=== PATIENT | male | born 1955 | race African-American/Black ===

== ENCOUNTER 2019-10-25 14:36 | Emergency (ER) | payer MEDICARE ==
[2019-10-25] MEDS ORDERED: Nitroglycerin 50 MG/250 ML BOT 250 ML ONE (14:48)
[2019-10-25] MEDS ORDERED: Enalaprilat Dihydrate 1.25 MG/ML VIAL ONE (14:48)
--- NOTE | 2019-10-25 14:59 | RAD ---
EXAM: Single view of the chest HISTORY: Respiratory distress and shortness of breath COMPARISON: None FINDINGS: Single view of the chest shows a normal sized cardiomediastinal silhouette. There are diffu se mixed interstitial/alveolar opacities in the lungs. Degenerative changes are seen in the spine. IMPRESSION: Diffuse mixed multifocal infiltrates
[2019-10-25] MEDS ORDERED: Furosemide 40 MG/4 ML VIAL ONE (15:03)
[2019-10-25 15:23] LABS: #Basophils 0.2 thou/uL (0.0-0.2); #Lymphocytes 1.1 thou/uL (1.20-3.40); #Monocytes 0.6 thou/uL (0.11-0.59); #Neutrophils 11.6 thou/uL (1.40-6.50); %Basophils 1.4 % (0.0-1.0); %Lymphocytes 8.3 % (21.0-51.0); %Monocytes 4.2 % (0.0-10.0); %Neutrophils 86.1 % (42.0-75.0); Hemoglobin 11.6 g/dL (14.0-18.0); Mean Corpuscular HGB CONC 30.5 g/dL (32.0-36.0); Mean Corpuscular Hemoglobin 22.4 pg (27.0-31.0); Mean Corpuscular Volume 73.5 fL (78.0-98.0); Mean Platelet Volume 10.8 fL (7.4-10.4); Platelet Count 325 thou/uL (130-400); RBC Distribution Width 14.5 % (11.5-14.5); Red Blood Cell (RBC) Count 5.17 mill/uL (4.70-6.10); White Blood Cell (WBC) Count 13.5 thou/uL (4.8-10.8)
[2019-10-25 15:49] LABS: CKMB 0.7 ng/mL (0-6.6)
[2019-10-25] MEDS ORDERED: Sodium Chloride 0.9% 100 ML ONE (15:49)
[2019-10-25] MEDS ORDERED: Cefepime 2 GM VIAL ONE (15:49)
[2019-10-25 15:52] LABS: ALT (SGPT) 18 U/L (8-55); AST (SGOT) 23 U/L (5-34); Albumin 3.8 g/dL (3.4-4.8); Alkaline Phosphatase 119 U/L (40-110); Anion Gap 22 mmol/L (10-20); BUN (Urea Nitrogen) 15 mg/dL (8.4-25.7); Bilirubin, Total 0.5 mg/dL (0.2-1.2); Calc. Creatinine Clearance 0 mL/min (70-130); Calcium 9.1 mg/dL (7.8-10.44); Carbon Dioxide 21 mmol/L (23-31); Chloride 96 mmol/L (98-107); Estimated GFR-MDRD 63; Globulin 4.7 g/dL (2.4-3.5); Glucose 421 mg/dL (80-115); Potassium 4.1 mmol/L (3.5-5.1); Protein, Total 8.5 g/dL (5.8-8.1); Sodium 135 mmol/L (136-145)
[2019-10-25] MEDS ORDERED: Sodium Chloride 0.9% 250 ML 500 ML ONE (15:52)
[2019-10-25 15:56] LABS: Base Excess-Venous 1.1 mmol/L (-2.0 to 3.0); Bicarbonate (HCO3v) 25.3 mmol/L (22.0-28.0); CO2 Tension (PvCO2) 38.1 mmHg (40.0-50.0); Calcium, Ionized 1.01 mmol/L (See Comments:); Chloride 99 mmol/L (98-107); Hemoglobin - Calc 14.4 g/dL (14.0-18.0); Potassium 4.1 mmol/L (3.5-5.1); Sodium 136 mmol/L (138-145); T. Carbon Dioxide 26.5 mmol/L (22.0-28.0); vO2 Saturation-calc 94.5 % (60.0-85.0)
[2019-10-25] MEDS ORDERED: Sodium Chloride 0.9% 1,000 ML ONE (16:35)
== END 2019-10-25 17:13 | disposition short-term general hospital (02) ==
LOC: MADERS 14:36
DX: R06.03 Acute respiratory distress (principal); Z20.828 Contact with and (suspected) exposure to other viral communicable diseases; E11.9 Type 2 diabetes mellitus without complications; E78.5 Hyperlipidemia, unspecified; I10 Essential (primary) hypertension; Z79.899 Other long term (current) drug therapy; Z79.84 Long term (current) use of oral hypoglycemic drugs
CPT/HCPCS: 71045; 80053; 82330; 82553; 82803; 83605; 83880; 84484; 85014; 85025; 85379; 87040; 93005; 96365; 96366; 96368; 96375; 99292; J0692; J1940; J3370; J3490; J7050